=== PATIENT | male | born 1995 ===

== ENCOUNTER 2021-10-11 20:54 | Emergency (ER) ==
[~2021-10-11] VITALS: Ht 188 cm; Wt 89.1 kg
[2021-10-11 20:55] VITALS: BP 131/70
== END 2021-10-11 23:24 | disposition left against medical advice (07) ==
LOC: M ED 20:54
DX: Z53.21 Procedure and treatment not carried out due to patient leaving prior to being seen by health care provider (principal)

== ENCOUNTER 2021-10-12 06:47 | Emergency (ER) | payer OTHER ==
[~2021-10-12] VITALS: Ht 188 cm; Wt 88.6 kg
[2021-10-12] MEDS ORDERED: BACITRACIN OINTMENT 30GM TUBE TOP ONE (07:45)
[2021-10-12 09:25] VITALS: BP 124/58
== END 2021-10-12 09:25 | disposition home or self-care (01) ==
LOC: M ED 06:47
DX: T23.202A Burn of second degree of left hand, unspecified site, initial encounter (principal); T23.201A Burn of second degree of right hand, unspecified site, initial encounter; T31.0 Burns involving less than 10% of body surface; T59.0X1A Toxic effect of nitrogen oxides, accidental (unintentional), initial encounter